=== PATIENT | female | born 1990 | race Caucasian/White ===

== ENCOUNTER 2016-11-10 13:00 | Emergency (ER) | payer BC ==
[2016-11-10 15:47] VITALS: BP 151/82
--- NOTE | 2016-11-10 16:08 | UC ---
Abdominal Pain Female HPI - HPI Summary HPI Summary: The patient comes in today for: 1. Lower left abdominal and left flank pain: Onset: Yesterday. Palliative/provocative: Laying down helps the back, sitting up helps the abdominal pain. Quality: Sharp and ache. Region: Left lower abdominal quadrant. Severity: 8/10 Associated symptoms: Kidney stones: She had this about 2 years ago. Fevers: None. Dysuria: None. Urinary frequency: Present. Urinary urgency: Present. Last UTI: NOne. Hematuria: none. Usual blood pressure: 122/60 * - History of Current Complaint Chief Complaint: UCAbdominalPain Stated Complaint: ABDOMINAL PAIN Time Seen by Provider: 11/10/16 16:00 Hx Obtained From: Patient Hx Last Menstrual Period: 10/24/16 ?: No Allergies/Adverse Reactions: Allergies Allergy/AdvReac Type Severity Reaction Status Date / Time No Known Allergies Allergy Verified 07/05/16 14:48 PMH/Surg Hx/FS Hx/Imm Hx Previously Healthy: No - Psoriasis, psoriatic arthritis, Endocrine History Of: Denies: Diabetes, Thyroid Disease, Hyperthyroidism, Hypothyroidism, Dyslipidemia Cardiovascular History Of: Denies: Cardiac Disorders, Hypertension, Pacemaker/ICD, Myocardial Infarction , Congestive Heart Failure, Atrial Fibrillation, Deep Vein Thrombosis, Bleeding Disorders Respiratory History Of: Denies: COPD, Asthma, Bronchitis, Pneumonia, Pulmonary Embolism GI/ History Of: Reports: Gastroesophageal Reflux - She is supposed to be on omeprazole, but has not refilled iot., Kidney Stones - x 1 (left) 2 years ago. Denies: Ulcer, Gastrointestinal Bleed, Gall Bladder Disease, Diverticulitis, Renal Disease, Urosepsis Neurological History Of: Denies: TIA, CVA, Dementia, Seizures, Migraine Psychological History Of: Reports: Anxiety - She can't remember the Rx name., Depression - She can't remember the name for sure--Celexa-citalopram?--"I think so." Denies: Bipolar Disorder, Schizophrenia, Post Traumatic Stress Disorder Cancer History Of: Denies: Lung Cancer, Colorectal Cancer, Breast Cancer, Prostate Cancer, Cervical Cancer Other History Of: Negative For: HIV, Hepatitis B, Hepatitis C, Anticoagulant Therapy - Surgical History Surgical History: None - Family History Known Family History: Positive: Hypertension Negative: Cardiac Disease, Diabetes - Social History Occupation: Employed Full-time Alcohol Use: Occasionally Substance Use Type: None Smoking Status (MU): Current Some Day Smoker Household Exposure Type: Cigarettes Review of Systems Constitutional: Negative Skin: Rash - Psoriasis. Eyes: Negative ENT: Negative Respiratory: Negative Cardiovascular: Negative Gastrointestinal: Abdominal Pain Genitourinary: Frequency, Urgency Musculoskeletal: Arthralgia, Myalgia All Other Systems Reviewed And Are Negative: Yes Physical Exam Triage Information Reviewed: Yes Appearance: Well-Appearing, No Pain Distress, Well-Nourished, Obese Vital Signs: Initial Vital Signs Temp 99 F 11/10/16 14:12 Pulse 60 11/10/16 14:12 Resp 18 11/10/16 14:12 BP 190/61 11/10/16 14:12 Pulse Ox 100 11/10/16 14:12 Vital Signs Reviewed: Yes Eyes: Positive: Conjunctiva Clear. Negative: Discharge ENT: Positive: Hearing grossly normal. Negative: Pharyngeal erythema, Nasal congestion, Nasal drainage, TM bulging, TM dull, TM red, Tonsillar swelling, Tonsillar exudate Dental: Positive: Gross Decay/Caries @ - Most of her teeth are rotten and black down to the gum line. Neck: Positive: Supple, Nontender, No Lymphadenopathy. Negative: Nuchal Rigidity Respiratory: Positive: Chest non-tender, Lungs clear, No respiratory distress, No accessory muscle use. Negative: Crackles, Wheezing Cardiovascular: Positive: RRR, No Murmur Abdomen Description: Positive: No Organomegaly, Soft, Other: - Exam is difficult due to amount of adipose tissue. It is difficult to place area of tenderness. Also, exam is difficult because of light touch leads to discomfort.. Negative: Nontender - She has tenderness of the LLQ and the RUQ, and the LUQ, but the tenderness is even to light touch when there is minimal depression of the abdominal wall. No percussion tenderness., CVA Tenderness (R) , CVA Tenderness (L), Distended, Guarding Musculoskeletal: Positive: Strength Intact, ROM Intact, No Edema, Other: - She has tenderness of the left lower back over the sacrum--not CVA. Neurological: Positive: Alert, Muscle Tone Normal Psychological: Positive: Age Appropriate Behavior, Consolable Skin: Negative: rashes, breakdown Diagnostics - Laboratory Diagnostic Studies Completed/Ordered: CT scan did not show any problems. - Radiology No standard instances Xray Interpretation: No Acute Changes - IMPRESSION: MILDLY LIMITED STUDY. NO CT EVIDENCE OF UROLITHIASIS OR OTHER ACUTE CT FINDING. Radiology Interpretation Completed By: Radiologist Abd Pain Female Course/Dx - Course Course Of Treatment: Patient was told of the negative CT scan. The patient was told that there are many causes of abdominal pain--some benign and some. lifethreatening. The patient was also told that of the life-threatening conditions--. they may be present with minimal, atypical and even no symptoms. These facts result in. us having to rely on testing to determine what is causing this pain. We are not. set up to offer all these tests here at the urgent care. The safest thing is to. go to the ER where such testing is available. She does not want to go to the ER at this time. - Differential Dx/Diagnosis Provider Diagnoses: ABdominal pain--etiology unknown. Discharge - Discharge Plan Condition: Stable Disposition: HOME Forms: *Work Release Referrals: Rubina Gonzalez MD [Primary Care Provider] - Additional Instructions: If you are not going to the ER at this time, please reconsider if you get worse. Please see your primary care provider as soon as you can for a follow- up evaluation in the next 1-2 days.
--- NOTE | 2016-11-10 17:17 | RAD ---
INDICATION: Left flank pain COMPARISON: None TECHNIQUE: Noncontrast axial source images were acquired from the level hemidiaphragms to the symphysis pubis as part of CT imaging for renal stone. The examination is limited due to patient's size. There is a stated height and weight of 5 feet 3 inches and 388 pounds. Lung bases: The lung bases are clear. Liver: The liver is enlarged with findings of hepatic steatosis. Noncontrast imaging shows no evidence of a hepatic mass or ductal dilatation. Gallbladder: There are no calcified gallstones. There is no evidence of wall thickening or pericholecystic fluid.. Spleen: The spleen is normal in size. The noncontrast CT appearance is normal. Pancreas: Noncontrast imaging shows no pancreatic mass or ductal dilitation. Adrenal glands: No masses are identified. Kidneys/Bladder: There is no evidence of nephrolithiasis or CT evidence of hydronephrosis. Noncontrast imaging shows no evidence of a renal mass. The bladder is unremarkable.. Adenopathy: There is no evidence of intraperitoneal or retroperitoneal adenopathy. Evaluation is limited without oral contrast. Fluid collections: There are no free or localized fluid collections. Vessels: The aorta and iliac vessels are normal in caliber. There are no significant atherosclerotic changes. The IVC appears normal Pelvic organs: The uterus and adnexa appear normal GI tract: Evaluation of the bowel is limited without oral contrast. The stomach, small bowel, and lower GI tract appear grossly normal. There are no obstructive findings. The appendix is visualized and appears normal. Soft tissues: No soft tissue abnormalities of the extraperitoneal abdomen or pelvis are identified. Osseous structures: There are no acute osseous findings. IMPRESSION: MILDLY LIMITED STUDY. NO CT EVIDENCE OF UROLITHIASIS OR OTHER ACUTE CT FINDING.
== END 2016-11-10 17:48 | disposition left against medical advice (07) ==
LOC: UCEAST 13:00
DX: R10.32 Left lower quadrant pain (principal); Z87.442 Personal history of urinary calculi; Z32.02 Encounter for pregnancy test, result negative; K21.9 Gastro-esophageal reflux disease without esophagitis; F41.9 Anxiety disorder, unspecified; F41.8 Other specified anxiety disorders; E66.9 Obesity, unspecified; Z72.0 Tobacco use
CPT/HCPCS: 74176; 81003; 84702; 99212; G0463

== ENCOUNTER 2017-03-02 15:43 | Emergency (ER) | payer SELFPAY ==
--- NOTE | 2017-03-02 15:53 | UC ---
Respiratory Complaint HPI - HPI Summary HPI Summary: 26 YEAR OLD FEMALE PRESENTS WITH COMPLAINS OF COUGH, VOMITING AND EAR PAIN. - History of Current Complaint Stated Complaint: COUGH,EAR PAIN,VOMITING Time Seen by Provider: 03/02/17 15:52 Hx Last Menstrual Period: 10/24/16 - Allergies/Home Medications Allergies/Adverse Reactions: Allergies Allergy/AdvReac Type Severity Reaction Status Date / Time No Known Allergies Allergy Verified 03/02/17 15:56 PMH/Surg Hx/FS Hx/Imm Hx Previously Healthy: Yes Other History Of: Negative For: HIV, Hepatitis B, Hepatitis C, Anticoagulant Therapy - Surgical History Surgical History: None - Family History Known Family History: Positive: None, Hypertension Negative: Cardiac Disease, Diabetes - Social History Alcohol Use: Occasionally Substance Use Type: None Smoking Status (MU): Current Some Day Smoker Household Exposure Type: Cigarettes Review of Systems Constitutional: Negative Skin: Negative Eyes: Negative ENT: Sore Throat, Nasal Discharge, Sinus Congestion, Other - RIGHT EXTERNAL EAR CANAL ERYTHEAM Respiratory: Negative Cardiovascular: Negative Gastrointestinal: Negative Genitourinary: Negative Motor: Negative Neurovascular: Negative Musculoskeletal: Negative Neurological: Negative Psychological: Negative All Other Systems Reviewed And Are Negative: Yes Physical Exam Triage Information Reviewed: Yes Eye Exam: Normal ENT: Positive: Pharyngeal erythema, Nasal congestion, Nasal drainage, Tonsillar swelling, Other: - RIGHT EXTERNAL EAR CANAL ERYTHEMA/TENDER Dental Exam: Normal Neck exam: Normal Neck: Positive: 1 Respiratory Exam: Normal Cardiovascular Exam: Normal Abdominal Exam: Normal Musculoskeletal Exam: Normal Neurological Exam: Normal Psychological Exam: Normal Skin Exam: Normal Respiratory Course/Dx - Differential Dx/Diagnosis Provider Diagnoses: SINUSITIS. RIGHT OTITIS EXTERNA Discharge - Discharge Plan Condition: Good Disposition: HOME Prescriptions: Amoxicillin/Clavulanate TAB* [Augmentin TAB 875*] 875 mg PO BID #20 tab Methylprednisolone [Medrol Dosepak 4 MG*] 4 mg PO .SEE IESHA INSTRUCTION #21 tab Neomyc/Polym/HC 1% OTIC SUSP* [Cortisporin Otic Susp 1%*] 4 drop RIGHT EAR QID # 1 btl guaiFENesin/CODIEN 100MG-10MG* [Robitussin AC 100Mg-10Mg*] 5 ml PO Q6H PRN #120 udc MDD 20 ml PRN Reason: Cough Patient Education Materials: Sinusitis (ED) Referrals: Rubina Gonzalez MD [Primary Care Provider] - If Needed
[2017-03-02 15:56] VITALS: BP 195/91
== END 2017-03-02 16:18 | disposition home or self-care (01) ==
LOC: UCEAST 15:43
DX: J32.9 Chronic sinusitis, unspecified (principal); H60.91 Unspecified otitis externa, right ear; Z72.0 Tobacco use
CPT/HCPCS: 99212; G0463

== ENCOUNTER 2017-08-19 12:10 | Emergency (ER) | payer OTHER ==
[2017-08-19 12:51] VITALS: BP 142/70
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
== END 2017-08-19 13:34 | disposition home or self-care (01) ==
LOC: UCCORT 12:10
DX: R21 Rash and other nonspecific skin eruption (principal); R50.9 Fever, unspecified; R03.0 Elevated blood-pressure reading, without diagnosis of hypertension; Z72.0 Tobacco use; Z72.89 Other problems related to lifestyle
CPT/HCPCS: 99212; G0463

== ENCOUNTER 2017-12-31 18:41 | Emergency (ER) | payer OTHER ==
[2017-12-31 19:06] VITALS: BP 164/74
--- NOTE | 2017-12-31 19:42 | UC ---
Respiratory Complaint HPI - HPI Summary HPI Summary: Per ferry hand: "states sick for over a week but over the past day cough and headache have been worse. Denies fever. " -she is here w/ her "best friend" Mohan. has pain over forehead that just started 5 hrs ago. no fevers. no wheezing. no asthma. has been admitted w/ penumonia in past. sx feel different. denies - History of Current Complaint Chief Complaint: UCRespiratory Stated Complaint: COUGH/NAUSEA/HEADACHE Time Seen by Provider: 12/31/17 19:41 Hx Last Menstrual Period: 12/23/17 Pain Intensity: 8 - Allergies/Home Medications Allergies/Adverse Reactions: Allergies Allergy/AdvReac Type Severity Reaction Status Date / Time No Known Allergies Allergy Verified 12/31/17 19:03 PMH/Surg Hx/FS Hx/Imm Hx Previously Healthy: Yes Other History Of: Negative For: HIV, Hepatitis B, Hepatitis C, Anticoagulant Therapy - Surgical History Surgical History: None - Family History Known Family History: Positive: Hypertension, Diabetes Negative: Cardiac Disease Family History: Dyslipidemia - Social History Alcohol Use: Rare Substance Use Type: None Smoking Status (MU): Light Every Day Tobacco Smoker Type: Cigarettes Amount Used/How Often: 1/4 ppd Household Exposure Type: Cigarettes - Immunization History Most Recent Influenza Vaccination: CURRENT 2016/2017 Review of Systems Constitutional: Negative Skin: Negative Eyes: Negative ENT: Sinus Congestion Respiratory: Cough Cardiovascular: Negative Gastrointestinal: Negative Genitourinary: Negative Motor: Negative Neurovascular: Negative Musculoskeletal: Negative Neurological: Negative Psychological: Negative Is Patient Immunocompromised?: No All Other Systems Reviewed And Are Negative: Yes Physical Exam Triage Information Reviewed: Yes Appearance: Well-Appearing, No Pain Distress, Well-Nourished - hygiene limited Vital Signs: Initial Vital Signs Temp 98 F 12/31/17 18:59 Pulse 68 12/31/17 18:59 Resp 19 12/31/17 18:59 BP 164/74 12/31/17 18:59 Pulse Ox 100 12/31/17 18:59 Vital Signs Reviewed: Yes Eye Exam: Normal ENT: Positive: Pharynx normal, Nasal congestion, TMs normal. Negative: Sinus tenderness Neck exam: Normal Neck: Positive: Supple, Nontender, No Lymphadenopathy Respiratory Exam: Normal Respiratory: Positive: Lungs clear, Normal breath sounds, No respiratory distress, No accessory muscle use. Negative: Crackles, Rhonchi, Stridor, Wheezing Cardiovascular Exam: Normal Cardiovascular: Positive: RRR, No Murmur, Pulses Normal Musculoskeletal Exam: Normal Neurological Exam: Normal Psychological Exam: Normal Skin Exam: Normal UC Diagnostic Evaluation - Laboratory O2 Sat by Pulse Oximetry: 100 Respiratory Course/Dx - Course Course Of Treatment: no evidence for bacterial infection at this time. -no abx needed. -yang oakley. - Differential Dx/Diagnosis Differential Diagnosis/HQI/PQRI: Asthma, Bronchitis, Laryngitis, Sinusitis Provider Diagnoses: Viral upper resp infection Discharge - Sign-Out/Discharge Documenting (check all that apply): Post-Discharge Follow Up - Discharge Plan Condition: Stable Disposition: HOME Prescriptions: Benzonatate CAP* [Tessalon 100 MG CAP*] 100 mg PO TID PRN #30 cap PRN Reason: Cough Patient Education Materials: Upper Respiratory Infection (ED) Referrals: Rubina Gonzalez MD [Primary Care Provider] - 6 Days Additional Instructions: There is no evidence for any bacterial infection at this time. Make sure to drink plenty of fluids and rest. - Billing Disposition and Condition Condition: STABLE Disposition: HOME
== END 2017-12-31 19:56 | disposition home or self-care (01) ==
LOC: UCCORT 18:41
DX: J06.9 Acute upper respiratory infection, unspecified (principal); F17.210 Nicotine dependence, cigarettes, uncomplicated
CPT/HCPCS: 99212; G0463

== ENCOUNTER 2019-04-30 12:56 | Emergency (ER) | payer OTHER ==
[2019-04-30 13:52] VITALS: BP 131/69
--- NOTE | 2019-04-30 13:55 | UC ---
Respiratory Complaint HPI - HPI Summary HPI Summary: One week of wheezing, coughing, fever and R sided back pain. She is a smoker. Has been exposed to several sick people this past week. - History of Current Complaint Chief Complaint: UCGeneralIllness Stated Complaint: COUGH,CHEST CONGESTION,WHEEZY Time Seen by Provider: 04/30/19 13:47 Hx Obtained From: Patient Hx Last Menstrual Period: 03/28/19 Pain Intensity: 5 Pain Scale Used: 0-10 Numeric Character: Cough: Productive Aggravating Factors: Deep Breaths Alleviating Factors: Nothing Associated Signs And Symptoms: Positive: Fever, Wheezing. Negative: Chills, Pleuritic Chest Pain, Nasal Congestion - Allergies/Home Medications Allergies/Adverse Reactions: Allergies Allergy/AdvReac Type Severity Reaction Status Date / Time No Known Allergies Allergy Verified 04/30/19 13:52 Home Medications: Home Medications Tildrakizumab-Asmn [Ilumya] 100 mg SQ SEE INSTRUCTIONS 04/30/19 [History Confirmed 04/30/19] PMH/Surg Hx/FS Hx/Imm Hx - Additional Past Medical History Additional PMH: PSORIASIS Endocrine History: Other - morbid obesity Other History Of: Negative For: HIV, Hepatitis B, Hepatitis C, Anticoagulant Therapy - Surgical History Surgical History: None - Family History Known Family History: Positive: None, Hypertension, Diabetes Negative: Cardiac Disease Family History: Dyslipidemia - Social History Alcohol Use: Rare Substance Use Type: None Smoking Status (MU): Light Every Day Tobacco Smoker Type: Cigarettes Amount Used/How Often: 1/4 ppd Household Exposure Type: Cigarettes - Immunization History Most Recent Influenza Vaccination: CURRENT 2016/2017 Review of Systems All Other Systems Reviewed And Are Negative: Yes Constitutional: Positive: Fever, Fatigue. Negative: Chills Skin: Negative: Rash ENT: Negative: Sore Throat, Sinus Congestion Respiratory: Positive: Shortness Of Breath, Cough, Other - R back/rib pain Cardiovascular: Positive: Negative Gastrointestinal: Positive: Nausea Musculoskeletal: Negative: Myalgia Neurological: Negative: Headache Physical Exam Triage Information Reviewed: Yes Appearance: Well-Appearing Vital Signs: Initial Vital Signs Temp 97.8 F 04/30/19 13:45 Pulse 63 04/30/19 13:45 Resp 16 04/30/19 13:45 BP 131/69 04/30/19 13:45 Pulse Ox 99 04/30/19 13:45 Vital Signs Reviewed: Yes Neck exam: Normal Respiratory: Positive: No respiratory distress, No accessory muscle use, Crackles - R side, Rhonchi - R side, Wheezing. Negative: Stridor Cardiovascular Exam: Normal Neurological: Positive: Alert Skin: Negative: Rashes Respiratory Course/Dx - Course Course Of Treatment: Respiratory illness x1 week in a morbidly obese smoker. Abnormal lung sounds on exam. Although vitals are unremarkable my concern is the abnormal lung sounds and one week of illness. Willing to tx to cover bacterial source. She is wheezing and in a smoker should have an inhaler on hand. She will f/u w/ pcp if not improving. - Differential Dx/Diagnosis Differential Diagnosis/HQI/PQRI: Bronchitis, Lower Resp Infection, Other Provider Diagnosis: Lower respiratory infection Discharge ED - Sign-Out/Discharge Documenting (check all that apply): Patient Departure All imaging exams completed and their final reports reviewed: No Studies - Discharge Plan Condition: Good Disposition: HOME Prescriptions: Albuterol HFA INHALER* [Ventolin HFA Inhaler*] 2 puff INH Q4H PRN #1 mdi PRN Reason: Cough Azithromycin TAB* [Zithromax TAB (Z-IESHA) 250 mg #6 tabs] 2 tab PO .TODAY, THEN 1 DAILY #1 iesha Patient Education Materials: Bacterial Pneumonia (ED) Referrals: Barbara Wayne [Primary Care Provider] - Additional Instructions: finish antibiotics until completion. - Billing Disposition and Condition Condition: GOOD Disposition: Home
== END 2019-04-30 14:19 | disposition home or self-care (01) ==
LOC: UCCORT 12:56
DX: J22 Unspecified acute lower respiratory infection (principal); M54.89 Other dorsalgia; E66.01 Morbid (severe) obesity due to excess calories; F17.210 Nicotine dependence, cigarettes, uncomplicated
CPT/HCPCS: 99212; G0463